=== PATIENT | male | born 1950 | race Caucasian/White ===

== ENCOUNTER → 2017-09-17 | Outpatient (CLI) | payer MEDICARE, BC ==
[~2017-09-17] MED LIST: ASPI-515 PO; ATOR10TA9 PO; ATOR40TA78 PO; CLOP75TA PO; LOSA50TA6 PO; METO25TA35 PO; MULT-516 PO
== END | disposition home or self-care (01) ==
LOC: CVU 07:26
PROVIDERS: ATTEND Surgery
DX: I65.23 Occlusion and stenosis of bilateral carotid arteries (principal); I25.10 Atherosclerotic heart disease of native coronary artery without angina pectoris; Z95.5 Presence of coronary angioplasty implant and graft
CPT/HCPCS: 93880

== ENCOUNTER → 2018-05-26 | Outpatient (CLI) | payer MEDICARE, BC ==
[~2018-05-26] MED LIST changes: -LOSA50TA6 PO; +LOSA50TA7 PO
== END | disposition home or self-care (01) ==
LOC: CVU 10:44
PROVIDERS: ATTEND Surgery
DX: I65.23 Occlusion and stenosis of bilateral carotid arteries (principal); I10 Essential (primary) hypertension; E78.5 Hyperlipidemia, unspecified
CPT/HCPCS: 93880

== ENCOUNTER → 2018-10-08 | Outpatient (CLI) | payer MEDICARE, BC ==
[~2018-10-08] MED LIST changes: +LOSA50TA14 PO; -LOSA50TA7 PO; +REGADENOSON 0.4 MG/5 ML SYRINGE ONE
== END | disposition home or self-care (01) ==
LOC: CFH 08:08
PROVIDERS: ATTEND Internal Medicine Cardiovascular Disease
DX: I25.10 Atherosclerotic heart disease of native coronary artery without angina pectoris (principal)
CPT/HCPCS: 78452; 93017; A9502; J2785

== ENCOUNTER 2018-10-28 09:47 | Observation (INO) | payer MEDICARE, BC ==
[~2018-10-28] VITALS: Ht 172.7 cm; Wt 74.8 kg
[~2018-10-28 09:47] MED LIST changes: -REGADENOSON 0.4 MG/5 ML SYRINGE ONE
[2018-10-28] MEDS ORDERED: SODIUM CHLORIDE 0.9% 1,000 ML IV SCH ×2 (10:43→12:23)
[2018-10-28 10:46] VITALS: BP 146/72
[2018-10-28] MEDS ORDERED: CLOPIDOGREL 75 MG TABLET PO ONE (11:00)
[2018-10-28] MEDS ORDERED: PLEASE ENTER HEIGHT AND WEIGHT MC SCH (11:00)
[2018-10-28] MEDS ORDERED: ASPIRIN 325 MG TABLET EC PO ONE (11:00)
[2018-10-28] MEDS ORDERED: METO25TA91 PO (11:08)
[2018-10-28] MEDS ORDERED: ASPI81TA45 PO (11:08)
[2018-10-28 11:09] LABS: BASOPHILS # (AUTO) 0.02 x10^3/uL (0-0.1); BASOPHILS % (AUTO) 0 % (0-1); EOSINOPHILS # (AUTO) 0.16 x10^3/uL (0-0.4); EOSINOPHILS % (AUTO) 2 % (1-7); LYMPHOCYTES # (AUTO) 2.03 x10^3/uL (1-3.4); LYMPHOCYTES % (AUTO) 26 % (22-44); MD NO; MEAN CORPUSCULAR HEMOGLOBIN 28.2 pg (27.5-34.5); MEAN CORPUSCULAR HGB CONC 33.3 g/dL (33.2-36.2); MEAN CORPUSCULAR VOLUME 84.6 fL (81-97); MEAN PLATELET VOLUME 8.9 fL (7.4-10.4); MONOCYTES # (AUTO) 0.59 x10^3/uL (0.2-0.8); MONOCYTES % (AUTO) 7 % (2-9); NEUTROPHILS # (AUTO) 5.13 x10^3/uL (1.8-6.8); NEUTROPHILS % (AUTO) 65 % (42-75); PLATELET COUNT 278 x10^3/uL (130-400); RED BLOOD COUNT 4.53 x10^6/uL (4.38-5.82); RED CELL DISTRIBUTION WIDTH 14.1 % (9.4-14.8)
[2018-10-28] MEDS ORDERED: OMEP-110 PO (11:09)
[2018-10-28] MEDS ORDERED: METF500T17 PO (11:09)
[2018-10-28 11:14] LABS: ANION GAP 6 mmol/L (5-15); CALCIUM 8.7 mg/dL (8.5-10.1); CHLORIDE 111 mmol/L (98-107); CREATININE 1.08 mg/dL (0.7-1.3)
[2018-10-28] MEDS ORDERED: TICAGRELOR 90 MG TABLET ONE (11:22)
[2018-10-28] MEDS ORDERED: VERAPAMIL 2.5 MG/ML, 2ML ONE (11:22)
[2018-10-28] MEDS ORDERED: BIVALIRUDIN 250 MG ONE ×2 (11:22→12:10)
[2018-10-28] MEDS ORDERED: LIDOCAINE 1%, 20ML ONE (11:22)
[2018-10-28] MEDS ORDERED: MIDAZOLAM 1 MG/ML, 5ML ONE (11:22)
[2018-10-28] MEDS ORDERED: FENTANYL PF 100 MCG/2ML ONE (11:22)
[2018-10-28] MEDS ORDERED: NITROGLYCERIN 5 MG/ML, 10ML ONE (11:23)
[2018-10-28] MEDS ORDERED: HEPARIN 1,000 UNITS/ML, 10ML ONE (11:23)
[2018-10-28] MEDS ORDERED: BIVALIRUDIN 250 MG in SODIUM CHLORIDE 0.9% 50 ML IV SCH (12:23)
[2018-10-28] MEDS: ASPIRIN 81 MG TABLET EC PO SCH (12:30)
[2018-10-28] MEDS ORDERED: BISACODYL 10 MG SUPP PR PRN (12:30)
[2018-10-28] MEDS ORDERED: ASPIRIN 81 MG TABLET EC PO SCH (12:30)
[2018-10-28] MEDS ORDERED: ZOLPIDEM 5MG TABLET PO PRN (12:30)
[2018-10-28] MEDS ORDERED: ACETAMINOPHEN 325 MG TABLET PO PRN (12:30)
[2018-10-28 19:30] VITALS: BP_SYST 133; BP_SYST 140; BP_DIAS 79; BP_DIAS 80
[2018-10-28] MEDS ORDERED: ATORVASTATIN 40 MG TABLET PO SCH (21:00)
[2018-10-28] MEDS: TICAGRELOR 90 MG TABLET PO SCH (21:01)
[2018-10-29 00:31] VITALS: BP 157/71
[2018-10-29 04:59] LABS: ANION GAP 8 mmol/L (5-15); CALCIUM 8.9 mg/dL (8.5-10.1); CHLORIDE 109 mmol/L (98-107)
[2018-10-29 05:02] LABS: CREATININE 1.17 mg/dL (0.7-1.3)
[2018-10-29] MEDS ORDERED: MULTIVITAMIN 1 TABLET PO SCH (09:00)
[2018-10-29] MEDS ORDERED: OMEPRAZOLE 20 MG CAPSULE.DR PO SCH (09:00)
[2018-10-29] MEDS ORDERED: LOSARTAN 50MG TABLET PO SCH (09:00)
[2018-10-29] MEDS ORDERED: METOPROLOL SUCCINATE 25 MG TAB.ER.24H PO SCH (09:00)
[2018-10-29] MEDS ORDERED: TICA90TA PO (09:04)
[2018-10-29 09:05] VITALS: BP 145/71
[2018-10-29] MEDS: ASPIRIN 81 MG TABLET EC PO SCH (09:17)
[2018-10-29] MEDS: TICAGRELOR 90 MG TABLET PO SCH (09:17)
== END 2018-10-29 10:45 | disposition home or self-care (01) ==
LOC: CACL 09:47 → 5SO 16:25 → CACL 10-29 00:08 → 5SO 10-29 00:09 → DCLOUNGE 10-29 10:24
PROVIDERS: ADMIT Internal Medicine Cardiovascular Disease; ATTEND Internal Medicine Cardiovascular Disease
DX: I25.110 Atherosclerotic heart disease of native coronary artery with unstable angina pectoris (principal); I10 Essential (primary) hypertension; E11.9 Type 2 diabetes mellitus without complications; E78.5 Hyperlipidemia, unspecified
CPT/HCPCS: 36415; 80048; 85025; 93005; 93458; 96365; 96366; 99156; 99157; C1725; C1769; C1874; C1887; C9600; G0378; J0583; J1644; J2250; J3010; J3490; Q9967

== ENCOUNTER → 2020-11-29 | Outpatient (CLI) | payer MEDICARE, BC ==
[~2020-11-29] MED LIST changes: -ASPI-515 PO; +ASPI-963 PO; +ASPI81TA45 PO; +FERR159T3 PO; +METF500T17 PO; +METO25TA91 PO; +OMEP-110 PO; +PANT40TA3 PO; +TICA90TA PO
== END | disposition home or self-care (01) ==
LOC: CVU 12:58
PROVIDERS: ATTEND Internal Medicine Cardiovascular Disease
DX: I08.8 Other rheumatic multiple valve diseases (principal); I11.9 Hypertensive heart disease without heart failure; E78.00 Pure hypercholesterolemia, unspecified; I25.10 Atherosclerotic heart disease of native coronary artery without angina pectoris
CPT/HCPCS: 93306